=== PATIENT | male | born 1980 | race Caucasian/White ===

== ENCOUNTER 2017-03-14 01:45 | Emergency (ER) | payer SELFPAY ==
[~2017-03-14] VITALS: Ht 172.7 cm; Wt 79.4 kg
[2017-03-14] MEDS: PROMETHAZINE HCL 25 MG/1 ML VIAL IM ONE (01:56)
[2017-03-14] MEDS: HYDROMORPHONE 1 MG/1 ML DISP.SYRIN IM ONE (01:56)
[2017-03-14] MEDS: COLCHICINE 0.6 MG TABLET PO ONE (02:02)
[2017-03-14] MEDS ORDERED: HYDROMORPHONE 1 MG/1 ML DISP.SYRIN ONE (02:02)
[2017-03-14] MEDS ORDERED: PROMETHAZINE HCL 25 MG/1 ML VIAL ONE (02:02)
--- NOTE | 2017-03-14 02:05 | NUR ---
Pt ambulated to room with shuffled gait favoring his left leg. Pt c/o left knee pain sts he has history of gout. Pt seen by MD. Pt medicated for discomfort, will monitor for effects of medication.
[2017-03-14] MEDS ORDERED: COLCHICINE 0.6 MG TABLET ONE (02:09)
--- NOTE | 2017-03-14 02:22 | NUR ---
Pt stable for discharge per MD. Pt given ACI. Pt verbalized understanding of dc instructions. 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
[2017-03-14 02:25] VITALS: BP 136/75
== END 2017-03-14 02:27 | disposition home or self-care (01) ==
LOC: ER 01:53
DX: M10.9 Gout, unspecified (principal)
CPT/HCPCS: A4663; J1170; J2550